=== PATIENT | male | born 1985 | race Caucasian/White ===

== ENCOUNTER 2018-01-01 10:57 | Inpatient (IN) | payer OTHER ==
[2018-01-01 12:37] LABS: HEMATOCRIT 44.5 % (42.0-52.0); HEMOGLOBIN 15.4 g/dl (13.5-17.5); MEAN CORPUSCULAR HEMOGLOBIN 29.6 pg (27.0-33.0); MEAN CORPUSCULAR HGB CONC 34.6 g/dl (32.0-36.5); MEAN CORPUSCULAR VOLUME 85.4 fl (80.0-96.0); PLATELET COUNT, AUTOMATED 278 10^3/uL (150-450); RED BLOOD COUNT 5.21 10^6/uL (4.30-6.10); RED CELL DISTRIBUTION WIDTH 12.3 % (11.5-14.5); WHITE BLOOD COUNT 8.6 10^3/uL (4.0-10.0)
[2018-01-01 13:01] LABS: AMPHETAMINES LEVEL URINE NEGATIVE (NEGATIVE); BARBITURATES URINE NEGATIVE (NEGATIVE); BENZODIAZEPINES URINE NEGATIVE (NEGATIVE); CANNABINOIDS URINE NEGATIVE (NEGATIVE); COCAINE METABOLITE URINE NEGATIVE (NEGATIVE); METHADONE URINE NEGATIVE (NEGATIVE); OPIATES URINE NEGATIVE (NEGATIVE); PHENCYCLIDINE URINE NEGATIVE (NEGATIVE)
[2018-01-01 13:10] LABS: ALBUMIN/GLOBULIN RATIO 1.33 (1.00-1.93); ALKALINE PHOSPHATASE 97 U/L (45-117); ALT/SGPT 42 U/L (12-78); ANION GAP 8 MEQ/L (8-16); AST/SGOT 20 U/L (7-37); BILIRUBIN,DIRECT < 0.1 MG/DL (0.0-0.2); BILIRUBIN,TOTAL 0.3 MG/DL (0.2-1.0); BLOOD UREA NITROGEN 17 MG/DL (7-18); CARBON DIOXIDE LEVEL 27 MEQ/L (21-32); CHLORIDE LEVEL 106 MEQ/L (98-107); CREATININE FOR GFR 1.02 MG/DL (0.70-1.30); ETHYL ALCOHOL (ETHANOL) < 0.003 % (0.000-0.010); GLOMERULAR FILTRATION RATE > 60.0 (>60); GLUCOSE, FASTING 97 MG/DL (70-100); POTASSIUM SERUM 3.9 MEQ/L (3.5-5.1); SALICYLATE LEVEL < 1.7 MG/DL (5.0-30.0); SODIUM LEVEL 141 MEQ/L (136-145)
[2018-01-01 13:12] LABS: ACETAMINOPHEN LEVEL < 2.0 UG/ML (10.0-30.0)
[2018-01-01] MEDS ORDERED: MOM 30ML SUSPENSION UDC PO (16:30)
[2018-01-01] MEDS ORDERED: MAALOX 30 ML SUSP *UDC PO (16:30)
[2018-01-02] MEDS: FLUoxetine 20 MG CAP PO (08:09)
[2018-01-02] MEDS ORDERED: hydrOXYzine 25 MG TAB PO (17:00)
[2018-01-02] MEDS: traZODone 25MG PER 1/2 TABLET PO (20:58)
[2018-01-03] MEDS: FLUoxetine 20 MG CAP PO (07:51)
[2018-01-03] MEDS: traZODone 25MG PER 1/2 TABLET PO (19:59)
[2018-01-04] MEDS: ACETAMINOPHEN TAB 650MG DOSE (2X325MG) PO (08:21)
[2018-01-04] MEDS: FLUoxetine 20 MG CAP PO (08:22)
[2018-01-04] MEDS: traZODone 25MG PER 1/2 TABLET PO (20:15)
[2018-01-05] MEDS: FLUoxetine 20 MG CAP PO (08:29)
[2018-01-05] MEDS: traZODone 25MG PER 1/2 TABLET PO (20:37)
[2018-01-06] MEDS: FLUoxetine 20 MG CAP PO (07:59)
== END 2018-01-06 13:00 | disposition home or self-care (01) | DRG 885 ==
LOC: M ED 10:57 → M ED INP 16:16 → M PSY 17:28
DX: F33.9 Major depressive disorder, recurrent, unspecified (principal); R45.851 Suicidal ideations; F43.10 Post-traumatic stress disorder, unspecified; Z79.899 Other long term (current) drug therapy; M72.2 Plantar fascial fibromatosis; M77.30 Calcaneal spur, unspecified foot

== ENCOUNTER → 2018-07-04 | Outpatient (CLI) | payer OTHER ==
[~2018-07-04] MED LIST: ARIP2TAB PO; CEPA1LOZ5 MT; FLUO20CA19 PO; MUCI30TA5 PO; PSEU60TA23 PO; TRAZ-160 PO
--- NOTE | 2018-07-06 09:19 | REP ---
CT INTERNAL AUDITORY CANALS WITHOUT CONTRAST: HISTORY: Conductive hearing loss. The internal auditory canals, cochlea , vestibules and semicircular canals are normal in appearance. The ossicles are normal in configuration and position. There is no carotid canal or jugular bulb dehiscence. The middle ear cavities and Mastoid air cells are clear. The scutum and tegmen are intact. IMPRESSION: Normal CT IACS. Electronically Signed by Je Greenfield MD 07/06/2018 10:18 A
== END ==
LOC: M RAD 08:37
PROVIDERS: ATTEND Otolaryngology
DX: H90.A12 Conductive hearing loss, unilateral, left ear with restricted hearing on the contralateral side (principal)